=== PATIENT | female | born 2000 | race Caucasian/White ===

== ENCOUNTER 2024-07-02 05:48 | Emergency (ER) | payer MEDICAID ==
[~2024-07-02] VITALS: Ht 154.9 cm; Wt 52.6 kg
[2024-07-02 05:58] VITALS: O2SAT 100
[2024-07-02] MEDS: HYDROCODONE/ACETAMINOPHEN 10/325MG TABLET PO ONE (09:41)
[2024-07-02] MEDS ORDERED: IBUP-2029 MT (10:31)
[2024-07-02] MEDS ORDERED: CEPH500C2 MT (10:31)
[2024-07-02 10:48] VITALS: BP 103/70; PULSE 62; RESP 14; TEMP 37; O2SAT 100
== END 2024-07-02 10:47 | disposition home or self-care (01) ==
LOC: ER 05:48
DX: S61.422A Laceration with foreign body of left hand, initial encounter (principal); Z79.899 Other long term (current) drug therapy; V49.9XXA Car occupant (driver) (passenger) injured in unspecified traffic accident, initial encounter; Y93.89 Activity, other specified; Y92.89 Other specified places as the place of occurrence of the external cause; Y99.8 Other external cause status
CPT/HCPCS: 81025; 73120; 73130; 99284; Z7610 ×2